=== PATIENT | male | born 1965 | race Caucasian/White ===

== ENCOUNTER 2018-11-13 10:20 | Outpatient (CLI) | payer OTHER ==
--- NOTE | 2018-11-13 11:54 | RAD ---
Thoracic spine 3 views HISTORY: Back pain. FINDINGS: There are 12 thoracic type vertebrae. Pedicles are intact. Minimal rightward convex curvatu re on the frontal view. Vertebral body heights and AP alignment are maintained. Mild osteophytosis throughout the vertebral bodies and facets. IMPRESSION: Mild degenerative changes thoracic spine. No acute osseous abnormalities are demonstrated
== END 2018-11-13 10:21 | disposition home or self-care (01) ==
LOC: NAV RAD 10:20
PROVIDERS: ATTEND Family Medicine
DX: Z02.71 Encounter for disability determination (principal); M54.9 Dorsalgia, unspecified; M47.814 Spondylosis without myelopathy or radiculopathy, thoracic region
CPT/HCPCS: 72072